=== PATIENT | female | born 1985 | race Asian ===

== ENCOUNTER 2018-06-13 16:26 | Inpatient (IN) | payer OTHER ==
[2018-06-13 16:33] VITALS: BMI 24.7
--- NOTE | 2018-06-13 16:39 | PDOC ---
History of Present Illness - General Chief Complaint: Vaginal Bleeding Stated Complaint: vaginal spotting s/p urinating,40 weeks Time Seen by Provider: 06/13/18 16:33 History Source: Patient Exam Limitations: No Limitations - History of Present Illness Initial Comments: 06/13/18 16:34 healthy 32y/o F A2 at 40wks gestation uncomplicated to date but has h/o gestational diabetes untreated during this and GBS+, recent u/ s 05/22 with normal growth presents today 2/2 vaginal spotting with urination and q1h cramping. no discharge, no other pain. presents requesting to transfer OB care to [facility], has been followed by Dr. Ji in [place]. Past History - Past Medical History Allergies/Adverse Reactions: Allergies Allergy/AdvReac Type Severity Reaction Status Date / Time No Known Allergies Allergy Verified 06/13/18 16:29 Home Medications: Ambulatory Orders Pnv No.95/Ferrous Fum/Folic AC [ Vitamin Tablet] 1 each PO DAILY COPD: No Other medical history: pt denies - Suicide/Smoking/Psychosocial Hx Smoking History: Never smoked Hx Alcohol Use: No Drug/Substance Use Hx: No Substance Use Type: None Review of Systems - Review of Systems Constitutional: No: Chills, Fever HEENTM: No: Recent change in vision ABD/GI: No: Nausea, Vomiting : Yes: See HPI *Physical Exam - Vital Signs Last Vital Signs Temp Pulse Resp BP Pulse Ox 97.6 F 102 H 20 116/73 97 06/13/18 16:30 06/13/18 16:30 06/13/18 16:30 06/13/18 16:30 06/13/18 16:30 - Physical Exam Comments: 06/13/18 16:37 vital signs stable, afebrile GENERAL: The patient is awake, alert, and fully oriented, in no acute distress. . HEAD: Normal with no signs of trauma. EYES: PERRL, EOMI, sclera anicteric, conjunctiva clear with no pallor. ENT: Moist mucous membranes. NECK: Normal range of motion, supple. LUNGS: Breath sounds equal, clear to auscultation bilaterally. No wheeze/ crackles. HEART: Regular rate and rhythm, normal S1 and S2 without murmur or rub. ABDOMEN: gravid, Soft/nontender/nondistended. BS wnl. Bedside sono with +FHR and movement. No active bleeding or contractions or . EXTREMITIES: Normal range of motion, no edema. 2+ distal pulses. No cords, erythema, or tenderness. NEUROLOGICAL: Cranial nerves II through XII grossly intact. Normal speech, normal gait. PSYCH: Normal mood, normal affect. SKIN: Warm, Dry, no rashes or lesions noted. ED Treatment Course - LABORATORY CBC & Chemistry Diagram: 06/13/18 16:42 06/13/18 16:42 Medical Decision Making - Medical Decision Making 06/13/18 16:39 32-year-old female 40 weeks gestation presents with vaginal spotting and intermittent cramping, not in active labor and with normal bedside ultrasound. Medically cleared for transfer to labor and delivery. Spoke with staff, accepted for transfer. Ambulance arranged. IV established and labs sent 06/13/18 17:27 clinically unchanged. CBC wnl. ambulance here for transfer to L+D, no further contractions or bleeding. *DC/Admit/Observation/Transfer Diagnosis at time of Disposition: Labor and delivery, indication for care - Discharge Dispostion Condition at time of disposition: Stable - Referrals - Patient Instructions - Post Discharge Activity
[2018-06-13 16:53] LABS: HEMATOCRIT 37.9 % (32.4-45.2); HEMOGLOBIN 12.8 GM/dl (10.7-15.3); MCH 31.6 pg (25.7-33.7); MCHC 33.8 g/dl (32.0-36.0); MEAN CELL VOLUME 93.5 fl (80-96); MEAN PLT VOLUME 9.9 fl (7.5-11.1); PLATELET COUNT 86 K/MM3 (134-434); RBC 4.05 M/mm3 (3.60-5.2); RDW 14.1 % (11.6-15.6); WHITE BLOOD COUNT 6.9 K/mm3 (4.0-10.8)
[2018-06-13 17:09] LABS: ALBUMIN 3.3 g/dl (3.5-5.0); ALK PHOS 197 U/L (32-92); ANION GAP 9 MMOL/L (8-16); BILIRUBIN,TOTAL 0.5 mg/dl (0.2-1.0); BLOOD UREA NITROGEN 10 mg/dl (7-18); CALCIUM 8.9 mg/dl (8.4-10.2); CHLORIDE 101 mmol/L (98-107); CO2 24 mmol/L (22-28); GLUCOSE,RANDOM 110 mg/dl (74-106); POTASSIUM 3.8 mmol/L (3.5-5.1); SGOT/AST 27 U/L (10-42); SGPT/ALT 22 U/L (10-40); SODIUM 134 mmol/L (136-145); TOT PROT 6.5 g/dl (6.4-8.3)
[2018-06-13 17:10] LABS: CREATININE < 0.6 mg/dl (0.6-1.3)
[2018-06-13] MEDS ORDERED: PROMETHAZINE HCL 25 MG/1 ML VIAL IVPB ONE (19:39)
[2018-06-13] MEDS ORDERED: BUTORPHANOL TARTRATE 1 MG/ML VIAL IVPB ONE (19:39)
[2018-06-13] MEDS ORDERED: ELECTROLYTE-148 SOLN 1,000 ML IV SCH (19:45)
[2018-06-13] MEDS ORDERED: SODIUM PHOSPHATE/NA BIPHOS 133 ML ENEMA PR ONE (19:45)
--- NOTE | 2018-06-13 20:06 | HP ---
Past Medical History - Primary Care Physician PCP:: Aviva Parker - Admission Chief Complaint: 32 yrs , 39.5 weeks iup transferred from [facility] by [facility] for ob evaluation .pt c/o spotting yesterday night & again twice today , cramps mild infrquent . pt admitted for induction due to Thrombocytopenia ( plt 86), GDM diet controlled( bl gl 110 ) positive GBS History of Present Illness: care at [facility] in [facility] . wt gain 23 lbs panel 11/09/17 : O pos, Hbsag neg, Hep B Core Ab neg, Hep B SAb reactive , Rpr nr, Rubella pos, Hiv neg 04/09/18 Hgb A1A2 , Sickle neg , gc/ct neg, varicella immune h/o positive PPD , , chest xray last 12/04 neg Thrmmbocytopenia 141 K h/h 10.7/33.8, , decreased to 83 K at 28 weeks, , repeat 04/09/18 at 30 wks 95 K, 05/08/18 --104 K h/h 10.4/33.4 01/01/18 --Quad screen neg , 1st trimester screen declined 05/15/18 GBS Pos 01/23/18 anatomy sono normal,19.5 wks , ant placenta, normal fluid , small ant subserosal myoma 11mm 05/21/18 sono 36.4 wks, karissa 11.5 cm bpp8/8, nst reactive, normal UA dopplers, efw 6'5'( 43%tile) 181 hr Gtt 180 h/h 11.2/34.6 04/13/18 3 Hr Gtt 82/162/157/165 GDM diagnosed diet controlled h/o Prpmetrium 200 mg (micronized progesterone 200 mg ) intravaginally was given History Source: Patient, Medical Record - Past Medical History FISH INSPECTOR: No: Dementia, Migraine, Seizure Cardiovascular: No: HTN, Murmur Pulmonary: No: Asthma Gastrointestinal: Yes: Constipation. No: Ascites Renal/: No: UTI Reproductive: Yes: Other ( 11/22/2013 pap neg/hpv neg , 05/09/16 gc/ct neg) ...: 4 ...Para: 1 ( 03/2008 6'5', h/o thrombocytopenia ) ...Term: 1 ...: 0 ...Spon : 1 ...Induced : 1 ...LMP: 09/08/17 ... Weeks Gestation by Dates: 39.5 ...EDC by Dates: 06/15/18 ...EDC by Sono: 06/16/18 (39.4 weeks by sono ) Heme/Onc: Yes: Anemia (h/o microcytic anemia h/h 10.7/33.5 rx po iron & PNV) Infectious Disease: No: AIDS, HIV, STD's, Tuberculosis Psych: No: Addictions, Anxiety, Bipolar, Depression, Panic, Psychosis, Schizophrenia, Other Endocrine: Yes: Other (GDM diet controlled) - Past Surgical History Past Surgical History: Yes: None Hx Myomectomy: No Hx Transabdominal Cerclage: No - Smoking History Smoking history: Never smoked - Alcohol/Substance Use Hx Alcohol Use: No History of Substance Use: reports: None Home Medications - Allergies Allergies/Adverse Reactions: Allergies Allergy/AdvReac Type Severity Reaction Status Date / Time No Known Allergies Allergy Verified 06/13/18 16:29 - Home Medications Home Medications: Ambulatory Orders Pnv No.95/Ferrous Fum/Folic AC [ Vitamin Tablet] 1 each PO DAILY Physical Exam - Maternity Vital Signs: Vital Signs Temperature 98.3 F 06/13/18 18:30 Pulse Rate 86 06/13/18 18:30 Respiratory Rate 18 06/13/18 18:30 Blood Pressure 126/88 06/13/18 18:30 O2 Sat by Pulse Oximetry (%) 97 06/13/18 16:30 Constitutional: Yes: Well Nourished, No Distress Eyes: Yes: WNL HENT: Yes: WNL, Normocephalic Neck: Yes: WNL Cardiovascular: Yes: WNL, Regular Rate and Rhythm Lungs: Clear to auscultation Breast(s): Yes: WNL. No: Mass - Abdominal Exam/OB Fundal Height: 38 Number of Fetuses: Single Presentation: Vertex Contractions: Yes Regularity: Irregular Intensity: Mild Monitor Mode: External Heart Rate (range): 135 Heart Rate Location: [facility] Category: I Accelerations: Uniform Decelerations: None - Vaginal Exam/OB Vaginal Bleediing: Bloody Show Speculum Exam: No Dilatation (cm): 1-2 Effacement (%): 50 Amniotic Membrane Status: Intact Presentation: Vertex/Position Station: -3 - Physical Exam Musculoskeletal: Yes: WNL Extremities: Yes: WNL. No: Calf Tenderness Edema: Yes Edema: LLE: 1+, RLE: 1+ Deep Tendon Reflex Grade: Normal +2 ...Motor Strength: WNL Psychiatric: Yes: WNL, Alert, Oriented - Labs Lab Results: CBC, BMP 06/13/18 16:42 06/13/18 16:42 Laboratory Tests 06/13/18 16:42 Blood Type O POSITIVE Antibody Screen Negative Selected Entries 06/13/18 22:00 Temperature 98.8 F Pulse Rate 93 H Blood Pressure 134/77 Laboratory Tests 06/13/18 06/13/18 06/13/18 20:45 20:45 20:45 PT with INR 10.60 INR 0.90 PTT (Actin FS) 29.0 POC Glucometer Uric Acid 4.8 GGT 13 AST 18 ALT 24 Urine Protein Negative Ur Leukocyte Esterase 2+ H 06/13/18 21:20 PT with INR INR PTT (Actin FS) POC Glucometer 85 Uric Acid GGT AST ALT Urine Protein Ur Leukocyte Esterase Laboratory Tests 06/13/18 06/13/18 20:45 20:45 WBC 6.8 RBC 3.84 Hgb 12.4 Hct 34.7 MCV 90.6 MCH 32.4 MCHC 35.8 RDW 14.9 Plt Count 108 L Retic Count 2.59 H Problem List - Problems (1) with 39 completed weeks gestation Code(s): Z3A.39 - 39 WEEKS GESTATION OF (2) Gestational thrombocytopenia Code(s): O99.119 - OTH DIS OF BLD/BLD-FORM ORG/IMMUN MECHNSM COMP PREG,UNSP TRI ; D69.6 - THROMBOCYTOPENIA, UNSPECIFIED Qualifiers: Trimester: third trimester Qualified Code(s): O99.113 - Other diseases of the blood and blood-forming organs and certain disorders involving the immune mechanism complicating , third trimester; D69.6 - Thrombocytopenia, unspecified (3) Positive GBS test Code(s): B95.1 - STREPTOCOCCUS, GROUP B, CAUSING DISEASES CLASSD ELSWHR (4) Diet controlled gestational diabetes mellitus (GDM) in third trimester Code(s): O24.410 - GESTATIONAL DIABETES MELLITUS IN , DIET CONTROLLED (5) Encounter for induction of labor Code(s): Z34.90 - ENCNTR FOR SUPRVSN OF NORMAL , UNSP, UNSP TRIMESTER Assessment/Plan 32 yrs , , 39.5 weeks, gbs pos , Thrombocytopenia , drop in latent labor plan :HELLP work Up--- neg Induction of labor cervidil inserted at 7.50 PM GBS prophylaxis with Ampicillin BGM monitoring trial vaginal delivery
[2018-06-13] MEDS ORDERED: DINOPROSTONE 10 MG VAGINAL SUPPOSITORY VG ONE (20:45)
[2018-06-13] MEDS ORDERED: AMPICILLIN SODIUM 2 GM VIAL ONE (20:58)
[2018-06-13 21:09] LABS: RETICULOCYTES 2.59 % (0.5-1.5)
[2018-06-13 21:10] LABS: BASO % 0.3 % (0-2.0); HEMATOCRIT 34.7 % (32.4-45.2); HEMOGLOBIN 12.4 GM/dL (10.7-15.3); LYMPH % 25.8 % (8-40); MCH 32.4 pg (25.7-33.7); MCHC 35.8 g/dl (32.0-36.0); MEAN CELL VOLUME 90.6 fl (80-96); MONO % 6.1 % (3.8-10.2); NEUT % 66.8 % (42.8-82.8); PLATELET COUNT 108 K/MM3 (134-434); RBC 3.84 M/mm3 (3.60-5.2); RDW 14.9 % (11.6-15.6); WHITE BLOOD COUNT 6.8 K/mm3 (4.0-10.0)
[2018-06-13 21:20] LABS: URINE APPEARANCE CLEAR; URINE BILIRUBIN NEGATIVE (<2.0 mg/dL); URINE COLOR STRAW; URINE GLUCOSE (UA) NEGATIVE (NEGATIVE); URINE KETONE NEGATIVE (NEGATIVE); URINE LEUK ESTERASE 2+ (NEGATIVE); URINE NITRITE NEGATIVE (NEGATIVE); URINE PROTEIN NEGATIVE (NEGATIVE); URINE UROBILINOGEN NEGATIVE mg/dL (0.2-1.0)
[2018-06-13 21:30] LABS: URIC ACID 4.8 mg/dL (2.6-7.2)
[2018-06-13 21:34] LABS: INR 0.9 (0.83-1.09); PROTHROMBIN TIME (PATIENT) 10.6 SEC (9.7-13.0)
[2018-06-13 21:45] LABS: EPI CELLS RARE /HPF (FEW)
[2018-06-13] MEDS ORDERED: PROMETHAZINE HCL 25 MG/1 ML VIAL ONE (21:55)
[2018-06-13] MEDS ORDERED: BUTORPHANOL TARTRATE 1 MG/ML VIAL ONE ×2 (21:55)
[2018-06-13] MEDS ORDERED: AMPICILLIN - 2 GM in SODIUM CHLORIDE 100 ML IVPB ONE (22:00)
[2018-06-13 22:16] LABS: RATIO URIN PROTEIN/URIN CREAT <0.16 MG/DL
--- NOTE | 2018-06-13 23:07 | PN ---
Progress Note, Labor Vaginal Exam #1 Labor Exam Date: 06/13/18 Labor Exam Time: 22:50 Heart Rate (range): 130 Dilatation: 7-8 Effacement (%): 100 Amniotic Membrane Status: Ruptured (AROM , blood stained due to large bloodyshow Cervidil removed) Presentation: Vertex/Position Station: -2 Remarks: uc q 1-2 min fhr cat-1 . 21.00 hr Iv 2 gm Ampicillin given 22..00 hr stadol 2mg + phenrga 25 mgiv given Selected Entries 06/13/18 06/13/18 20:00 22:00 Temperature 98.6 F 98.8 F Pulse Rate 83 93 H Blood Pressure 112/76 134/77 Vaginal Exam #2 Labor Exam Date: 06/13/18 Labor Exam Time: 23:15 Heart Rate (range): 130-110 Dilatation: 10 Effacement (%): 100 Amniotic Membrane Status: Ruptured Presentation: Vertex/Position Station: +2 (+2/+3) Remarks: fhr cat-1 , head compression uc 1-2 min pt pushing
[2018-06-13] MEDS ORDERED: LIDOCAINE HCL 1% PRESERVATIVE FREE - 30ML VIAL ONE (23:23)
[2018-06-13] MEDS ORDERED: OXYTOCIN 20 UNITS in 0.9% NS 20 UNIT/1,000 ML INFUS.BAG IV ONE (23:23)
--- NOTE | 2018-06-14 00:34 | PN ---
Delivery - Delivery Vaginal Delivery: No Problems, Spontaneous (Baby delievered in ASHLY position, immediate oral & nasal suction was done .shoulder delievered without difficulty) Type of Anesthesia: Local Episiotomy/Laceration: Midline (episiotomy was sutured in layers with chromic catgut#2/0 in layers . bladder catheterized & emptied ME exam mucosa & sphincter intact. vulva edema & hemorrhoids are noted) EBL (cc): 350 (250 ml bib color ) Delivery, Single - Stages of Labor Date 1st Stage Initiatied: 06/13/18 Time 1st Stage Initiated: 21:00 Date 2nd Stage Initiated: 06/13/18 Time 2nd Stage Initiated: 23:15 Date of Delivery: 06/13/18 Time of Delivery: 23:35 Date Placenta Delivered: 06/13/18 Time Placenta Delivered: 23:45 Placenta: Yes: Spontaneous, Uterine Exploration - Condition of Import Coordinator/Turning Machine Set Up Operator Present: No Infant Gender: Male Weight: 7 lb 14 oz Position: Left, OA Total Hours ROM (Hrs/Mins): 55 min - 1 Minute Total Score: 9 5 Minutes Total Score: 9 Remarks - Remarks Remarks: 32 yrs , 39.5 weeks , admitted for induction of labor due to Thrombocytopenia . HELLP syndrome work up neg care elsewhere ( [facility]) cervidil insertion at 7.50 PM pt went into active labor GBS positive, rx iv Ampicilin 2 gm one dose received IV stadol 2mg + phenrgan 25 mg was given for labor analgesia . h/o GDM diet controoled intrapartum course uneventful
[2018-06-14] MEDS ORDERED: BENZOCAINE 20% 57 GM BOTTLE TP PRN (00:43)
[2018-06-14] MEDS ORDERED: oxyCODONE HCL 5 MG TABLET PO PRN (00:43)
[2018-06-14] MEDS ORDERED: WITCH HAZEL 50% (TUCKS) 40 PAD/JAR PAD TP PRN (00:43)
[2018-06-14] MEDS ORDERED: BENZOCAINE 28 GM HEMORRHOIDAL OINTMENT TP PRN (00:43)
[2018-06-14] MEDS ORDERED: METHYLERGONOVINE MALEATE 0.2 MG/1 ML AMP IM PRN (00:43)
[2018-06-14] MEDS ORDERED: BISACODYL 10 MG SUPP.RECT RC PRN (00:43)
[2018-06-14] MEDS ORDERED: OXYTOCIN 20 UNITS in 0.9% NS 20 UNIT/1,000 ML INFUS.BAG IV SCH (00:45)
[2018-06-14 00:52] LABS: VENOUS PC02 46.2 mmHg (38-52); VENOUS PH 7.32 (7.32-7.42); VENOUS PO2 34.5 mmHg (28-48)
[2018-06-14 01:08] LABS: ARTERIAL BLOOD GAS pH 7.34 (7.35-7.45)
[2018-06-14 01:09] LABS: ARTERIAL BLOOD GAS PCO2 45.6 mmHg (35-45)
[2018-06-14 01:10] LABS: ARTERIAL BLD GAS O2 SATURATION 75.2 % (90-98.9); ARTERIAL BLOOD GAS BASE EXCESS -1.7 meq/l (-2-2)
[2018-06-14 01:11] LABS: ARTERIAL BLOOD GAS PO2 36.3 mmHg (80-100)
[2018-06-14] MEDS ORDERED: OXYTOCIN 20 UNITS in 0.9% NS 20 UNIT/1,000 ML INFUS.BAG IV ONE (01:17)
[2018-06-14] MEDS ORDERED: AMPICILLIN - 1 GM in SODIUM CHLORIDE 100 ML IVPB SCH (02:00)
--- NOTE | 2018-06-14 07:43 | PN ---
Post Progress Note - Subjective Subjective: no complains voided after delivery Post Day: 1 Type of Delivery: Vital Signs: Vital Signs Temperature 98.5 F 06/14/18 00:45 Pulse Rate 90 06/14/18 00:45 Respiratory Rate 18 06/14/18 00:45 Blood Pressure 98/54 L 06/14/18 00:45 O2 Sat by Pulse Oximetry (%) 100 06/14/18 00:45 Breast Exam: Yes: Soft, Other (BF ). No: Engorged Uterus: Yes: Fundus Firm, Fundus below umbilicus, Non-tender Lochia, amount: Moderate Extremities: Yes: Calves non-tender Perineum: Yes: Episiotomy (healing ) Activity: Ambulating - Labs Labs: CBC WBC 6.8 K/mm3 (4.0-10.0) 06/13/18 20:45 RBC 3.84 M/mm3 (3.60-5.2) 06/13/18 20:45 Hgb 12.4 GM/dL (10.7-15.3) 06/13/18 20:45 Hct 34.7 % (32.4-45.2) 06/13/18 20:45 MCV 90.6 fl (80-96) 06/13/18 20:45 MCH 32.4 pg (25.7-33.7) 06/13/18 20:45 MCHC 35.8 g/dl (32.0-36.0) 06/13/18 20:45 RDW 14.9 % (11.6-15.6) 06/13/18 20:45 Plt Count 108 K/MM3 (134-434) L 06/13/18 20:45 MPV 11.0 fl (7.5-11.1) 06/13/18 20:45 Absolute Neuts (auto) 4.5 K/mm3 (1.5-8.0) 06/13/18 20:45 Neutrophils % 66.8 % (42.8-82.8) 06/13/18 20:45 Lymphocytes % 25.8 % (8-40) 06/13/18 20:45 Monocytes % 6.1 % (3.8-10.2) 06/13/18 20:45 Eosinophils % 1.0 % (0-4.5) 06/13/18 20:45 Basophils % 0.3 % (0-2.0) 06/13/18 20:45 Nucleated RBC % 0 % (0-0) 06/13/18 20:45 Retic Count 2.59 % (0.5-1.5) H 06/13/18 20:45 Laboratory Tests 06/14/18 06:08 POC Glucometer 112 Problem List - Problems (1) with 39 completed weeks gestation Code(s): Z3A.39 - 39 WEEKS GESTATION OF (2) Gestational thrombocytopenia Code(s): O99.119 - OTH DIS OF BLD/BLD-FORM ORG/IMMUN MECHNSM COMP PREG,UNSP TRI ; D69.6 - THROMBOCYTOPENIA, UNSPECIFIED Qualifiers: Trimester: third trimester Qualified Code(s): O99.113 - Other diseases of the blood and blood-forming organs and certain disorders involving the immune mechanism complicating , third trimester; D69.6 - Thrombocytopenia, unspecified (3) Positive GBS test Code(s): B95.1 - STREPTOCOCCUS, GROUP B, CAUSING DISEASES CLASSD ELSWHR (4) Diet controlled gestational diabetes mellitus (GDM) in third trimester Code(s): O24.410 - GESTATIONAL DIABETES MELLITUS IN , DIET CONTROLLED (5) Encounter for induction of labor Code(s): Z34.90 - ENCNTR FOR SUPRVSN OF NORMAL , UNSP, UNSP TRIMESTER (6) Vaginal delivery Code(s): O80 - ENCOUNTER FOR FULL-TERM UNCOMPLICATED DELIVERY (7) Encounter for visit Code(s): Z39.2 - ENCOUNTER FOR ROUTINE FOLLOW-UP Assessment/Plan stable pp cbc today bgm as per nurse , may not be true fasting, since pt possibily eating at night chest x ray due to Pos PPD today pt requsts for discharge , will do tomorrow.
[2018-06-14 07:55] LABS: BASO % 0.1 % (0-2.0); HEMATOCRIT 27.9 % (32.4-45.2); HEMOGLOBIN 9.4 GM/dL (10.7-15.3); LYMPH % 10.6 % (8-40); MCH 30.9 pg (25.7-33.7); MCHC 33.6 g/dl (32.0-36.0); MEAN CELL VOLUME 92.1 fl (80-96); MEAN PLT VOLUME 10.6 fl (7.5-11.1); MONO % 5.4 % (3.8-10.2); NEUT % 83.9 % (42.8-82.8); PLATELET COUNT 88 K/MM3 (134-434); RBC 3.04 M/mm3 (3.60-5.2); WHITE BLOOD COUNT 10.5 K/mm3 (4.0-10.0)
[2018-06-14] MEDS: FERROUS SO4 325 MG TABLET (FP) PO SCH ×2 (08:32→17:35)
[2018-06-14] MEDS: PRENATAL VITAMINS W/ FOLIC ACID TABLET (FP) PO SCH (09:10)
[2018-06-14] MEDS: IBUPROFEN 600 MG TABLET (FP) PO PRN (11:20)
[2018-06-14] MEDS: ACETAMINOPHEN 325 MG TABLET (FP) PO PRN (11:20)
[2018-06-15] MEDS: IBUPROFEN 600 MG TABLET (FP) PO PRN ×2 (01:31→09:11)
--- NOTE | 2018-06-15 07:54 | DS ---
Physical Examination Vital Signs: Vital Signs Temperature 98.0 F 06/14/18 22:00 Pulse Rate 78 06/14/18 22:00 Respiratory Rate 18 06/14/18 22:00 Blood Pressure 96/53 L 06/14/18 22:00 O2 Sat by Pulse Oximetry (%) 100 06/14/18 00:45 Constitutional: Yes: Well Nourished, No Distress, Calm Eyes: Yes: WNL, Conjunctiva Clear, EOM Intact HENT: Yes: WNL, Atraumatic, Normocephalic Neck: Yes: WNL, Supple, Trachea Midline Cardiovascular: Yes: WNL, Regular Rate and Rhythm Respiratory: Yes: WNL, Regular, CTA Bilaterally Gastrointestinal: Yes: WNL, Normal Bowel Sounds Musculoskeletal: Yes: WNL Extremities: Yes: WNL Edema: No Integumentary: Yes: WNL Neurological: Yes: WNL, Alert, Oriented ...Motor Strength: WNL Psychiatric: Yes: WNL Labs: CBC, BMP 06/14/18 07:30 06/13/18 16:42 Discharge Summary Reason For Visit: INDUCTION OF LABOR Current Active Problems Diet controlled gestational diabetes mellitus (GDM) in third trimester (Acute) Encounter for induction of labor (Acute) Encounter for visit (Acute) Gestational thrombocytopenia (Acute) Labor and delivery, indication for care (Acute) Positive GBS test (Acute) with 39 completed weeks gestation (Acute) Vaginal delivery (Acute) Procedures: Principal: Condition: Stable - Instructions Diet, Activity, Other Instructions: Post Instructions DIET: Continue good diet high in protein, calcium, and iron rich foods. Drink at least eight (8) glasses of water daily in addition to other fluids. ct Diabetic Diet as instructed during . MEDICATIONS: Continue vitamins and iron as previously directed. Motrin and Tylenol may be taken for minor discomfort. ACTIVITY: Mild to moderate exercise may be started in two (2) weeks. Take frequent rest periods. Resume normal activity after six (6) week check up. WOUND CARE OF OPERATIVE SITE: Continue use of perineal bottle until vaginal discharge stops. Keep area clean. Shower daily. Keep abdominal wound dry. Report any drainage or redness to physician. Tub baths, tampons and douches are not permitted for [address] Breast feeding & or Bottle feeding BREAST CARE: (For those that are not breast feeding): If engorgement occurs: Wear tight fitting bra. Take Tylenol or Motrin for pain. Apply cold packs (ice in bags to each breast ) FAMILY PLANNING: There are many control alternatives to pursue and they should be discussed at your first office visit. You may resume sexual activity after your six (6) week check up. (Remember, is not a contraceptive) NEXT PHYSICIAN APPOINTMENT: Be certain to call for a six (6) week appointment, unless otherwise directed. CHECK 75 gn GCT after 3 months with your PCP Call Clinic or got to Emergency Dept if you have any of the following: Heavy vaginal bleeding Painful urination Leg pain Unusual odor noted to vaginal bleeding High fever Red streaking noted on breast Referrals: Aviva Parker MD [Emergency Provider] - Disposition: HOME - Home Medications Comprehensive Discharge Medication List: Ambulatory Orders Acetaminophen [Tylenol .Regular Strength -] 650 mg PO Q3H PRN tablet 06/14/18 Benzocaine [Americaine 20% [place] -] 1 spray TP PRN PRN bottle 06/14/18 Ferrous Sulfate [Feosol] 325 mg PO BIDWM tab 06/14/18 Ibuprofen [Motrin -] 200 mg PO Q4H PRN tablet 06/14/18 Pnv No.95/Ferrous Fum/Folic AC [ Vitamin Tablet] 1 each PO DAILY #30 tablet 06/14/18 Vitamins (Sjr) - 1 tab PO DAILY tablet 06/14/18 Witch Telma 50% (Tucks) [Tucks Pads -] 1 pad TP PRN PRN pad 06/14/18
[2018-06-15] MEDS: PRENATAL VITAMINS W/ FOLIC ACID TABLET (FP) PO SCH (09:10)
[2018-06-15] MEDS: FERROUS SO4 325 MG TABLET (FP) PO SCH (09:10)
[2018-06-15] MEDS: ACETAMINOPHEN 325 MG TABLET (FP) PO PRN (09:10)
[2018-06-15 12:51] VITALS: BP 103/69; PULSE 82; TEMP 90
[2018-06-15] MEDS ORDERED: SENNOSIDES/DOCUSATE COMBO (SENNA PLUS) TABLET (UD) PO PRN (22:00)
== END 2018-06-15 13:30 | disposition home or self-care (01) | DRG 560 ==
LOC: FER 16:26 → JLDR 19:35 → J3W 06-14 03:20
PROVIDERS: ADMIT Obstetrics & Gynecology; ATTEND Obstetrics & Gynecology
PROC: 10E0XZZ Delivery of Products of Conception, External Approach (ICD-10-PCS; principal; 2018-06-14)
PROC: 0W8NXZZ Division of Female Perineum, External Approach (ICD-10-PCS; 2018-06-14)
DX: O99.113 Other diseases of the blood and blood-forming organs and certain disorders involving the immune mechanism complicating pregnancy, third trimester (principal); D69.6 Thrombocytopenia, unspecified; O24.410 Gestational diabetes mellitus in pregnancy, diet controlled; O34.13 Maternal care for benign tumor of corpus uteri, third trimester; D25.2 Subserosal leiomyoma of uterus; O99.824 Streptococcus B carrier state complicating childbirth; O22.43 Hemorrhoids in pregnancy, third trimester; O99.013 Anemia complicating pregnancy, third trimester; D50.9 Iron deficiency anemia, unspecified; O28.0 Abnormal hematological finding on antenatal screening of mother; R76.11 Nonspecific reaction to tuberculin skin test without active tuberculosis; Z37.0 Single live birth; Z3A.39 39 weeks gestation of pregnancy
CPT/HCPCS: 36415; 36600; 59409; 71046-TC-FY; 80053; 81003; 81015; 82570; 82803; 82962; 82977; 83010; 84156; 84450; 84460; 84550; 85025; 85027; 85032; 85044; 85610; 85730; 86593; 86850; 86900; 86901; 99283-25